=== PATIENT | female | born 1940 | race Caucasian/White ===

== ENCOUNTER 2022-06-29 12:04 | Outpatient (CLI) | payer MEDICARE | END 2022-06-29 12:05 | disposition home or self-care (01) | LOC: CSHLAB 12:04 | PROVIDERS: ATTEND Specialist | DX: Z20.822 Contact with and (suspected) exposure to COVID-19 (principal) | CPT/HCPCS: 87811 ==

== ENCOUNTER 2022-07-04 07:30 | Day surgery (SDC) | payer MEDICARE ==
[2022-07-04 08:34] VITALS: BP 108/57; TEMP 97
[2022-07-04] MEDS ORDERED: PROPOFOL 20 ML ONE (09:21)
== END 2022-07-04 10:05 | disposition home or self-care (01) ==
LOC: CSHSDC 07:30
PROVIDERS: ATTEND Specialist
PROC: 5A2204Z Restoration of Cardiac Rhythm, Single (ICD-10-PCS; principal; 2022-07-04)
DX: I48.0 Paroxysmal atrial fibrillation (principal); I48.92 Unspecified atrial flutter; R94.31 Abnormal electrocardiogram [ECG] [EKG]; I25.10 Atherosclerotic heart disease of native coronary artery without angina pectoris; E78.2 Mixed hyperlipidemia; I25.83 Coronary atherosclerosis due to lipid rich plaque; I10 Essential (primary) hypertension; I49.5 Sick sinus syndrome; R06.02 Shortness of breath; Z20.822 Contact with and (suspected) exposure to COVID-19; I25.2 Old myocardial infarction; Z79.82 Long term (current) use of aspirin; Z79.01 Long term (current) use of anticoagulants; Z79.899 Other long term (current) drug therapy
CPT/HCPCS: 92960; 93005; 93010; J2704